=== PATIENT | male | born 2000 | race Caucasian/White ===

== ENCOUNTER 2023-08-14 17:27 | Emergency (ER) | payer SELFPAY ==
[~2023-08-14] VITALS: Ht 170.2 cm; Wt 62.3 kg
[2023-08-14 19:40] LABS: PH 5.5 (5.0-8.5); URINE APPEARANCE CLEAR (CLEAR/HAZY); URINE BLOOD NEGATIVE (NEGATIVE); URINE COLOR YELLOW (YELLOW); URINE GLUCOSE NEGATIVE (NEGATIVE); URINE KETONE NEGATIVE (NEGATIVE); URINE NITRATE NEGATIVE (NEGATIVE); URINE PROTEIN(semi-quant) NEGATIVE (NEGATIVE); URINE UROBILINOGEN 0.2 E.U/dL (0.2-1.0)
[2023-08-14 19:50] LABS: COLLECTION METHOD CLEAN CATCH
[2023-08-14 20:05] VITALS: BP 123/91; PULSE 64; TEMP 98.3
== END 2023-08-14 20:05 | disposition home or self-care (01) ==
LOC: COL.ER 17:27
PROVIDERS: Family Medicine
DX: R10.13 Epigastric pain (principal); Z87.891 Personal history of nicotine dependence